=== PATIENT | male | born 1950 | race Caucasian/White ===

== ENCOUNTER 2018-07-17 10:03 | Outpatient (REF) | payer MEDICARE, SELFPAY ==
[2018-07-17 19:23] LABS: Anion Gap 7.3 mmol/L (3-11); BUN 18 mg/dL (7-18); CO2 29.7 mmol/L (21.0-32.0); CREATININE 1.19 mg/dL (0.70-1.30); Calcium 9.1 mg/dL (8.5-10.1); Chloride 102 mmol/L (98-107); Cholesterol 174 mg/dL (50-200); Glucose 106 mg/dL (70-100); HDL Cholesterol 34 mg/dL (40-60); LDL CHOLESTEROL 117 mg/dL (<100); Potassium 4.7 mmol/L (3.5-5.1); Sodium 139 mmol/L (136-145); Triglyceride 117 mg/dL (30-150)
== END 2018-07-17 10:23 ==
LOC: NCHCN 10:03
PROVIDERS: PCP Internal Medicine; Visit Provider Internal Medicine
DX: I10 Essential (primary) hypertension (principal); Z79.899 Other long term (current) drug therapy
CPT/HCPCS: 80048; 80061; 83721

== ENCOUNTER 2020-01-05 15:37 | Outpatient (REF) | payer MEDICARE, SELFPAY ==
[2020-01-05 20:40] LABS: HCT 42.4 % (40.0-50.0); HGB 14.3 g/dL (13.5-17.5); MCH 30.4 pg (27.0-33.0); MCHC 33.7 % (32.0-36.0); MCV 90.2 fL (80-95); Platelet Count 151 10^3/uL (130-400); RDW 13.4 % (11.8-14.1); RDW-SD 44.3 fL; WBC 7.35 10^3/uL (4.4-10.8)
[2020-01-05 20:52] LABS: ALT 27 U/L (16-63); Anion Gap 5.8 mmol/L (3-11); BUN 22 mg/dL (7-18); CO2 27.2 mmol/L (21.0-32.0); CREATININE 1.18 mg/dL (0.70-1.30); Calcium 9.2 mg/dL (8.5-10.1); Chloride 104 mmol/L (98-107); Glucose 82 mg/dL (74-106); LDL CHOLESTEROL 118 mg/dL (<100); Potassium 4.4 mmol/L (3.5-5.1); Sodium 137 mmol/L (136-145)
== END 2020-01-05 15:57 ==
LOC: NCHCN 15:37
PROVIDERS: PCP Internal Medicine; Visit Provider Internal Medicine
DX: I10 Essential (primary) hypertension (principal); K21.9 Gastro-esophageal reflux disease without esophagitis; G25.0 Essential tremor
CPT/HCPCS: 80048; 83721; 85027; 84460

== ENCOUNTER 2021-02-19 18:29 | Outpatient (REF) | payer MEDICARE, SELFPAY ==
[2021-02-19 20:08] LABS: Anion Gap 8.1 mmol/L (3-11); BUN 20 mg/dL (7-18); CO2 27.9 mmol/L (21.0-32.0); CREATININE 1.2 mg/dL (0.70-1.30); Calcium 9.4 mg/dL (8.5-10.1); Chloride 106 mmol/L (98-107); Estimated GFR 59.51 (mL/min/1.73m2); Glucose 108 mg/dL (74-106); Potassium 4.5 mmol/L (3.5-5.1); Sodium 142 mmol/L (136-145); TSH 2.25 uIU/mL (0.36-3.74)
== END 2021-02-19 18:30 | disposition home or self-care (01) ==
LOC: NCHCN 18:29
PROVIDERS: PCP Internal Medicine; Visit Provider Internal Medicine
DX: I10 Essential (primary) hypertension (principal)
CPT/HCPCS: 80048; 84443

== ENCOUNTER 2022-03-28 17:38 | Outpatient (REF) | payer MEDICARE, SELFPAY ==
[2022-03-28 20:56] LABS: ALT 28 U/L (16-63); Anion Gap 6.1 mmol/L (3-11); BUN 30 mg/dL (7-18); CO2 27.9 mmol/L (21.0-32.0); CREATININE 1.5 mg/dL (0.70-1.30); Chloride 100 mmol/L (98-107); Creatine Kinase 207 U/L (39-308); Estimated GFR 48.55 (mL/min/1.73m2); Glucose 108 mg/dL (74-106); Potassium 4.5 mmol/L (3.5-5.1); Sodium 134 mmol/L (136-145)
[2022-03-28 21:07] LABS: Calculated LDL 88 mg/dL (<100); Cholesterol 153 mg/dL (<200); HDL Cholesterol 35 mg/dL (40-60); Triglyceride 151 mg/dL (<150)
== END 2022-03-28 17:39 | disposition home or self-care (01) ==
LOC: NCHCN 17:38
PROVIDERS: PCP Internal Medicine; Visit Provider Internal Medicine
DX: I10 Essential (primary) hypertension (principal); E78.5 Hyperlipidemia, unspecified; E66.3 Overweight
CPT/HCPCS: 80048; 80061; 82550; 84460

== ENCOUNTER 2022-04-22 15:46 | Outpatient (REF) | payer MEDICARE, SELFPAY ==
--- NOTE | 2022-04-22 15:15 | SKI_PTH ---
PATIENT: Dustin Gardner LOC: [facility] U#:[id number] AGE/SX: 72/M ROOM: RE04/22/[address]: Keny Johnson : 1950 BED: DIS: 04/22/2022 SPEC #: [id number] RECD: 04/23/22 12:09 STATUS: NIKA ESPINO #: [id number] ALECIA: 04/22/22 15:[address]: Keny Johnson DEPT: Surgical Specimen RECD BY: Grace Mosley Tissues: 1 - SKIN BIOPSY(SHAVE/PUNCH) Procedures: SKIN LEVEL 4 Comments: [id number]
== END 2022-04-22 15:47 | disposition home or self-care (01) ==
LOC: NCHCN 15:46
PROVIDERS: PCP Internal Medicine; Visit Provider Internal Medicine
DX: C44.519 Basal cell carcinoma of skin of other part of trunk (principal)
CPT/HCPCS: 88305

== ENCOUNTER 2022-11-20 09:00 | Outpatient (REF) | payer MEDICARE, SELFPAY ==
--- NOTE | 2022-11-20 14:30 | SKI_PTH ---
PATIENT: Dustin Gardner LOC: [facility] U#:[id number] AGE/SX: 72/M ROOM: RE11/20/[address]: Keny Johnson : 1950 BED: DIS: 11/21/2022 SPEC #: [id number] RECD: 11/21/22 16:58 STATUS: NIKA ESPINO #: [id number] ALECIA: 11/20/22 14:[address]: Keny Johnson DEPT: Surgical Specimen RECD BY: Adriana Gonzalez Tissues: 1 - SKIN BIOPSY(SHAVE/PUNCH) Procedures: SKIN LEVEL 4 Comments: [id number]
== END 2022-11-21 09:24 | disposition home or self-care (01) ==
LOC: NCHCN 09:00
PROVIDERS: PCP Internal Medicine; Visit Provider Internal Medicine
DX: C44.319 Basal cell carcinoma of skin of other parts of face (principal)
CPT/HCPCS: 88305

== ENCOUNTER 2024-04-08 17:04 | Outpatient (REF) | payer MEDICARE, SELFPAY ==
[2024-04-08 19:38] LABS: ALT 38 U/L (16-63); Anion Gap 10.3 mmol/L (3-11); BUN 21 mg/dL (7-18); CO2 24.7 mmol/L (21.0-32.0); CREATININE 1.5 mg/dL (0.70-1.30); Calcium 8.6 mg/dL (8.5-10.1); Calculated LDL 75 mg/dL (<100); Chloride 102 mmol/L (98-107); Cholesterol 133 mg/dL (<200); Estimated GFR 47.95 (mL/min/1.73m2); Glucose 125 mg/dL (74-106); HDL Cholesterol 37 mg/dL (40-60); Potassium 3.9 mmol/L (3.5-5.1); Sodium 137 mmol/L (136-145); Triglyceride 108 mg/dL (<150)
[2024-04-08 20:27] LABS: Creatine Kinase 167 U/L (39-308)
[2024-04-13 23:39] LABS: Hepatitis C Ab w Rflx HCV PCR Negative (Negative)
== END 2024-04-08 17:05 | disposition home or self-care (01) ==
LOC: NCHCN 17:04
PROVIDERS: PCP Internal Medicine; Visit Provider Internal Medicine
DX: I10 Essential (primary) hypertension (principal)
CPT/HCPCS: 80048; 80061; 82550; 86704; 86706; 86803; 87340; 84460